=== PATIENT | male | born 1965 | race Caucasian/White ===

== ENCOUNTER 2020-12-28 12:30 | Emergency (ER) | payer OTHER ==
[2020-12-28 12:43] VITALS: BP 159/99; PULSE 97
--- NOTE | 2020-12-28 12:53 | EDM.PDOC ---
ED HPI GENERAL MEDICAL PROBLEM - General Chief Complaint: General Stated Complaint: ABCESS NEAR RECTUM Time Seen by Provider: 12/28/20 12:53 Source of Information: Reports: Patient History Limitations: Reports: No Limitations - History of Present Illness INITIAL COMMENTS - FREE TEXT/NARRATIVE: 55-year-old male presents to the ED with a painful swelling below his rectum on the left side that he first noticed yesterday morning and is much worse today. He can still walk it is mostly painful to walk versus sit. No problem with bowel movement x2 this morning. No blood. No systemic signs of illness with fever chills nausea or vomiting. He has had a previous perirectal abscess that required surgical drainage about 12 years ago. He cannot remember if it was in the same place or not. He is not known to have any diabetes. He feels he had COVID-19 illness last October. He has no signs or symptoms of COVID-19 illness at this time. He is a smoker and is trying to quit. Has occasional cough. He has had no previous abdominal surgery. Onset: Gradual Onset Date: 12/27/20 Onset Time: 06:00 Duration: Day(s):, Getting Worse Location: Reports: Other (More so on the perineum.) Quality: Reports: Ache, Throbbing Severity: Mild (Rates pain as 3 out of 10.) Improves with: Reports: Rest Worsens with: Reports: Other (This with walking with) Context: Reports: Other (Spontaneous development of perirectal abscess). Denies: Activity, Exercise ( pants in place.), Lifting, Sick Contact, Trauma Associated Symptoms: Reports: No Other Symptoms, Cough, cough w sputum (Folkers cough.). Denies: Confusion, Chest Pain, Diaphoresis, Fever/Chills, Headaches, Loss of Appetite, Malaise, Nausea/Vomiting, Rash, Seizure, Shortness of Breath, Syncope, Weakness Treatments [employer]: Reports: Other (see below) (None today.) rectum Pain Score (Numeric/FACES): 7 - Related Data Allergies Allergy/AdvReac Type Severity Reaction Status Date / Time No Known Allergies Allergy Verified 12/28/20 12:43 Home Meds: Home Meds oxyCODONE HCl/Acetaminophen [Percocet 5-325 mg Tablet] 1 - 2 each PO Q4H PRN #10 tablet 12/28/20 [Rx] Past Medical History HEENT History: Reports: Retinal Detachment Genitourinary History: Reports: Renal Calculus - Past Surgical History Male Surgical History: Reports: Renal Calculus, Other (See Below) (Previous perirectal abscess incision and drainage 12 years ago.) Musculoskeletal Surgical History: Reports: Shoulder Surgery (Repair of torn rotator cuff.) Social & Family History - Tobacco Use Tobacco Use Status *Q: Former Tobacco User Used Tobacco, but Quit: Yes Month/Year Tobacco Last Used: 07/2020 - Recreational Drug Use Recreational Drug Use: No ED ROS GENERAL - Review of Systems Review Of Systems: See Below Constitutional: Denies: Fever, Chills, Malaise, Weakness, Fatigue, Decreased Appetite, Weight Loss HEENT: Reports: No Symptoms Respiratory: Reports: Wheezing, Cough Cardiovascular: Reports: No Symptoms (Occasional wheezing. Occasional cough.) Endocrine: Reports: No Symptoms GI/Abdominal: Reports: No Symptoms, Other (Bowel movements thus far today with no pain other than on wiping.) : Reports: No Symptoms Musculoskeletal: Reports: Back Pain, Joint Pain (Is and shoulders at times.) Skin: Reports: Other (In full swollen area left inferior to the) Neurological: Reports: No Symptoms ( anus.) Psychiatric: Reports: No Symptoms Hematologic/Lymphatic: Reports: No Symptoms ED EXAM, GENERAL - Physical Exam Exam: See Below Exam Limited By: No Limitations General Appearance: Alert, WD/WN, No Apparent Distress, Other (Temperature is 36.4 degrees. Heart rate is 97 and sinus respiratory is 18 with O2 sats of 97% room air BP initially was 159/99. It did come down nicely to 136/90.) Eye Exam: Bilateral Eye: Normal Inspection (No scleral icterus or blepharal pallor.) Throat/Mouth: Normal Inspection, Normal Lips, Normal Teeth, Normal Oropharynx Head: Atraumatic, Normocephalic Neck: Normal Inspection, Supple, Non-Tender, Full Range of Motion. No: Carotid Bruit, Lymphadenopathy (L), Lymphadenopathy (R) Respiratory/Chest: No Respiratory Distress, No Accessory Muscle Use, Chest Non- Tender, Rhonchi (Rhonchi upper anterior chest that clear with coughing.), Wheezing. No: Lungs Clear, Normal Breath Sounds Cardiovascular: Normal Peripheral Pulses, Regular Rate, Rhythm, No Edema, No Gallop, No Murmur, No Rub Peripheral Pulses: 2+: Posterior Tibial (L), Posterior Tibial (R), Dorsalis Pedis (L), Dorsalis Pedis (R), 3+: Carotid (L), Carotid (R) GI/Abdominal: Normal Bowel Sounds, Soft, Non-Tender, No Organomegaly, No Abnormal Bruit, No Mass, Pelvis Stable, Hernia (No surgical scars. He does have an umbilical hernia which is easily reducible and does not give him any discomfort.), Other (Male) Exam: Circumcised Rectal (Males) Exam: Other (Patient has a perirectal abscess approximately 1 inch in length and three quarters of an inch in width at the 5 to 6 o'clock position if he is lying supine. Is inferior and to the left of the anus more so on the perineum. It is tender and warm to touch.) Back Exam: Normal Inspection, Full Range of Motion. No: CVA Tenderness (L), CVA Tenderness (R) Extremities: Normal Inspection, Normal Range of Motion, Non-Tender, No Pedal Edema Neurological: Alert, Oriented, CN II-XII Intact, Normal Cognition Psychiatric: Normal Affect, Normal Mood Skin Exam: Warm, Dry, Intact, Normal Color, Erythema (Mild erythema over perirectal abscess as described above.), Increased Warmth Course - Vital Signs Last Recorded V/S: Last Vital Signs Temp 36.4 C 12/28/20 12:41 Pulse 97 12/28/20 12:41 Resp 18 12/28/20 12:41 BP 159/99 H 12/28/20 12:41 Pulse Ox 97 12/28/20 12:41 - Orders/Labs/Meds Orders: Active Orders 24 hr Category Date Time Status Sodium Chloride 0.9% [Normal Saline] 1,000 ml Med 12/28/20 13:15 Active IV ASDIRECTED Medication Orders Sodium Chloride (Normal Saline) 1,000 mls @ 100 mls/hr IV ASDIRECTED ARSHI Last Admin: 12/28/20 13:30 Dose: 100 mls/hr Documented by: SIRI Labs: Laboratory Tests 12/28/20 12/28/20 Range/Units 13:23 13:23 WBC 10.28 H (4.23-9.07) K/mm3 RBC 4.80 (4.63-6.08) M/mm3 Hgb 15.5 D (13.7-17.5) gm/dl Hct 44.3 (40.1-51.0) % MCV 92.3 H (79.0-92.2) fl MCH 32.3 H (25.7-32.2) pg MCHC 35.0 (32.2-35.5) g/dl RDW Std Deviation 44.1 H (35.1-43.9) fL Plt Count 197 (163-337) K/mm3 MPV 9.9 (9.4-12.3) fl Neut % (Auto) 67.7 (34.0-67.9) % Lymph % (Auto) 19.7 L (21.8-53.1) % Dougherty % (Auto) 10.2 (5.3-12.2) % Eos % (Auto) 1.8 (0.8-7.0) Baso % (Auto) 0.4 (0.1-1.2) % Neut # (Auto) 6.95 H (1.78-5.38) K/mm3 Lymph # (Auto) 2.03 (1.32-3.57) K/mm3 Dougherty # (Auto) 1.05 H (0.30-0.82) K/mm3 Eos # (Auto) 0.19 (0.04-0.54) K/mm3 Baso # (Auto) 0.04 (0.01-0.08) K/mm3 Sodium 140 (136-145) mEq/L Potassium 3.3 L (3.5-5.1) mEq/L Chloride 104 (98-107) mEq/L Carbon Dioxide 26 (21-32) mEq/L Anion Gap 13.3 (5-15) BUN 14 (7-18) mg/dL Creatinine 0.9 (0.7-1.3) mg/dL Est Cr Clr Drug Dosing 92.74 mL/min Estimated GFR (MDRD) > 60 (>60) mL/min BUN/Creatinine Ratio 15.6 (14-18) Glucose 115 H (74-106) mg/dL Calcium 8.7 (8.5-10.1) mg/dL Total Bilirubin 0.6 (0.2-1.0) mg/dL AST 25 (15-37) U/L ALT 58 (16-63) U/L Alkaline Phosphatase 89 (46-116) U/L C-Reactive Protein 2.7 H* (<1.0) mg/dL Total Protein 7.0 (6.4-8.2) g/dl Albumin 3.7 (3.4-5.0) g/dl Globulin 3.3 gm/dL Albumin/Globulin Ratio 1.1 (1-2) Meds: Medications Generic Name Dose Route Start Last Admin Trade Name Freq PRN Reason Stop Dose Admin Sodium Chloride 1,000 mls @ 100 mls/hr 12/28/20 13:15 12/28/20 13:30 Normal Saline IV 100 mls/hr ASDIRECTED RASHI Administration Discontinued Medications Generic Name Dose Route Start Last Admin Trade Name Freq PRN Reason Stop Dose Admin Metronidazole 500 mg/ Premix 100 mls @ 100 mls/hr 12/28/20 13:07 12/28/20 13:51 IV 12/28/20 14:06 100 mls/hr ONETIME ONE Administration Ceftriaxone Sodium 2 gm/ 100 mls @ 200 mls/hr 12/28/20 13:08 12/28/20 13:30 Sodium Chloride IV 12/28/20 13:37 200 mls/hr ONETIME ONE Administration Lidocaine/Epinephrine 20 ml 12/28/20 15:00 12/28/20 15:11 Lidocaine 1% With Epinephrine 1:100,000 20 Ml Mdv INJECT 12/28/20 15:01 20 ml ONETIME ONE Administration Lidocaine/Epinephrine Confirm 12/28/20 14:50 12/28/20 15:11 Lidocaine 1% With Epinephrine 1:100,000 10 Ml Mdv Administered 12/28/20 14:51 Not Given Dose 20 ml .ROUTE .[facility] ONE - Radiology Interpretation Free Text/Narrative:: 55-year-old male presents to the ED with a painful swollen area inferior and to the left of his anus. Patient had a similar event about 12 years ago which required incision and drainage in the operating room. He states he waited too long at that time. He first noted tenderness in this area yesterday morning and today it is much worse. It is painful to walk but not so bad to sit. He has no systemic signs of illness with fever chills nausea or vomiting. He has no signs or symptoms of COVID-19 illness. He last ate 2 hours prior to arrival in the ED. Had a fairly large dinner. Lamination reveals a 2.5 cm x 1.5 cm oval- shaped abscess at the 5 6 o'clock position nearly on the perineum versus the rectum when he is supine. The area is moderately tender to palpation. He has minimal perianal skin tags from previous hemorrhoids. No other abnormalities detected. Plan routine labs to be done to make sure there is no systemic signs of illness. He will receive Rocephin 2 g IV and Flagyl 500 mg IV. I will discuss his case with the surgeon on-call. - Re-Assessments/Exams Free Text/Narrative Re-Assessment/Exam: 12/28/20 13:20: I did speak with and made her aware of the patient with a small perirectal abscess of perhaps 2 days duration. She is willing to see him in consultation with a view to incision and draining it under local anesthetic. Therefore COVID-19 screen will not be done. 12/28/20 14:18 White count is minimally elevated at 10.28. Differential is 67.7% neutrophils on the auto differential. Hemoglobin is 15.5 with hematocrit of 44.3. MCV is slightly elevated at 92.3. Platelet count normal 197,000. Serum sodium is 140 with a potassium of 3.3. Chloride is 104 the bicarb of 26. Anion gap is 13.3. BUN is 14 with a creatinine of 0.9. GFR is greater than 60. Glucose is 115 with a calcium of 8.7. Total bilirubin is 0.6 and the liver function is otherwise normal. C-reactive protein is mildly elevated at 2.7. Total protein is 7.0 with an albumin fraction of 3.7. 12/28/20 15:00: Dr Gordon has formed the incision and drainage on his perirectal/perineal abscess. She is advised him how to keep the area clean with sits baths and to dress the wound for the next 2 to 3 days until it closes in. He will use Motrin 600 mg and 1 Percocet 5/325 mg tablet every 6 hours as needed for pain relief. Provided with 10 tablets of Percocet 5/325 mg strength. He will follow up with her in the clinic if any further problems occur or return to the ED over the weekend. Departure - Departure Time of Disposition: 15:28 Disposition: Home, Self-Care 01 Condition: Fair Clinical Impression: [place]-rectal abscess - Discharge Information *PRESCRIPTION DRUG MONITORING PROGRAM REVIEWED*: Not Applicable *COPY OF PRESCRIPTION DRUG MONITORING REPORT IN PATIENT DANE: Not Applicable Prescriptions: oxyCODONE HCl/Acetaminophen [Percocet 5-325 mg Tablet] 1 - 2 each PO Q4H PRN #10 tablet PRN Reason: pain relief. Referrals: PCP,None [Primary Care Provider] - Forms: ED Department Discharge Additional Instructions: Evaluation in the emergency room today in regards to a perirectal abscess that developed on the left side inferior to the anus. It measured approximately one 2.5 cm x 1.5 cm in size. The area was incised and drained by surgeon Dr.Addom- Carrillo . He has advised you how to keep the area clean and about sits baths etc. I would suggest Motrin 600 mg with 1 Percocet 5/325 mg tablet every 6 hours as needed for pain relief for the next day or 2. After that things usually settle down pretty quickly. Of course return to the ED if you develop any fever chills, nausea vomiting. No further antibiotics are felt to be required since it was not a large quantity of pus in the abscess at this time. Sepsis Event Note (ED) - Evaluation Sepsis Screening Result: No Definite Risk - Focused Exam Vital Signs: Vital Signs Temp Pulse Resp BP Pulse Ox 12/28/20 12:41 36.4 C 97 18 159/99 H 97 - My Orders Last 24 Hours: My Active Orders 12/28/20 13:15 Sodium Chloride 0.9% [Normal Saline] 1,000 ml IV ASDIRECTED - Assessment/Plan Last 24 Hours: My Active Orders 12/28/20 13:15 Sodium Chloride 0.9% [Normal Saline] 1,000 ml IV ASDIRECTED
[2020-12-28] MEDS ORDERED: metroNIDAZOLE/Normal Saline 500 MG in Premix Bag 1 BAG IV ONE (13:07)
[2020-12-28] MEDS ORDERED: cefTRIAXone 2 GM in Sodium Chloride 0.9% 100 ML IV ONE (13:08)
[2020-12-28] MEDS ORDERED: Sodium Chloride 0.9% 1,000 ML IV SCH (13:15)
--- NOTE | 2020-12-28 14:44 | PCM.CONS ---
H&P History of Present Illness - General Date of Service: 12/28/20 Source of Information: Patient, Provider History Limitations: Reports: No Limitations - History of Present Illness Initial Comments - Free Text/Narative: The patient is a 55-year-old male presented with a 1 day history of pain in the perineum. He has a history of perineal abscess in the same location and came in for treatment. He denies any hematochezia or purulent stool. He reports normal stooling and normal urination. Denies any fevers or chills. He has never had a colonoscopy rectum Pain Score (Numeric/FACES): 7 - Related Data Allergies/Adverse Reactions: Allergies Allergy/AdvReac Type Severity Reaction Status Date / Time No Known Allergies Allergy Verified 12/28/20 12:43 Home Medications: Home Meds oxyCODONE HCl/Acetaminophen [Percocet 5-325 mg Tablet] 1 - 2 each PO Q4H PRN #10 tablet 12/28/20 [Rx] Past Medical History HEENT History: Reports: Retinal Detachment Genitourinary History: Reports: Renal Calculus - Past Surgical History Male Surgical History: Reports: Renal Calculus, Other (See Below) (Previous perirectal abscess incision and drainage 12 years ago.) Musculoskeletal Surgical History: Reports: Shoulder Surgery (Repair of torn rotator cuff.) Social & Family History - Family History Oncologic: Reports: Skin - Tobacco Use Tobacco Use Status *Q: Former Tobacco User Used Tobacco, but Quit: Yes Month/Year Tobacco Last Used: 07/2020 - Recreational Drug Use Recreational Drug Use: No H&P Review of Systems - Review of Systems: Review Of Systems: See Below General: Reports: No Symptoms HEENT: Reports: No Symptoms Pulmonary: Reports: No Symptoms Cardiovascular: Reports: No Symptoms Gastrointestinal: Reports: No Symptoms Genitourinary: Reports: No Symptoms Musculoskeletal: Reports: No Symptoms Skin: Reports: Erythema Neurological: Reports: No Symptoms Hematologic/Lymphatic: Reports: No Symptoms Exam - Exam Exam: See Below - Vital Signs Vital Signs: Last Vital Signs Temp 36.4 C 12/28/20 12:41 Pulse 97 12/28/20 12:41 Resp 18 12/28/20 12:41 BP 159/99 H 12/28/20 12:41 Pulse Ox 97 12/28/20 12:41 Weight: 97.522 kg - Exam Quality Assessment: No: Supplemental Oxygen General: Alert, Oriented HEENT: Conjunctiva Clear, EOMI Neck: Supple Lungs: Normal Respiratory Effort GI/Abdominal Exam: No Distention Rectal (Males) Exam: Other (Erythematous nodule measuring 3 x 1.5 cm on the patient's left sided perineum) Extremities: Normal Inspection, No Pedal Edema Peripheral Pulses: 2+: Dorsalis Pedis (L), Dorsalis Pedis (R) Skin: Warm, Dry, Intact Neurological: Cranial Nerves Intact Neuro Extensive - Mental Status: Normal Mood/Affect - Patient Data Lab Results Last 24 hrs: Laboratory Results - last 24 hr 12/28/20 12/28/20 Range/Units 13:23 13:23 WBC 10.28 H (4.23-9.07) K/mm3 RBC 4.80 (4.63-6.08) M/mm3 Hgb 15.5 D (13.7-17.5) gm/dl Hct 44.3 (40.1-51.0) % MCV 92.3 H (79.0-92.2) fl MCH 32.3 H (25.7-32.2) pg MCHC 35.0 (32.2-35.5) g/dl RDW Std Deviation 44.1 H (35.1-43.9) fL Plt Count 197 (163-337) K/mm3 MPV 9.9 (9.4-12.3) fl Neut % (Auto) 67.7 (34.0-67.9) % Lymph % (Auto) 19.7 L (21.8-53.1) % Graves % (Auto) 10.2 (5.3-12.2) % Eos % (Auto) 1.8 (0.8-7.0) Baso % (Auto) 0.4 (0.1-1.2) % Neut # (Auto) 6.95 H (1.78-5.38) K/mm3 Lymph # (Auto) 2.03 (1.32-3.57) K/mm3 Graves # (Auto) 1.05 H (0.30-0.82) K/mm3 Eos # (Auto) 0.19 (0.04-0.54) K/mm3 Baso # (Auto) 0.04 (0.01-0.08) K/mm3 Sodium 140 (136-145) mEq/L Potassium 3.3 L (3.5-5.1) mEq/L Chloride 104 (98-107) mEq/L Carbon Dioxide 26 (21-32) mEq/L Anion Gap 13.3 (5-15) BUN 14 (7-18) mg/dL Creatinine 0.9 (0.7-1.3) mg/dL Est Cr Clr Drug Dosing 92.74 mL/min Estimated GFR (MDRD) > 60 (>60) mL/min BUN/Creatinine Ratio 15.6 (14-18) Glucose 115 H (74-106) mg/dL Calcium 8.7 (8.5-10.1) mg/dL Total Bilirubin 0.6 (0.2-1.0) mg/dL AST 25 (15-37) U/L ALT 58 (16-63) U/L Alkaline Phosphatase 89 (46-116) U/L C-Reactive Protein 2.7 H* (<1.0) mg/dL Total Protein 7.0 (6.4-8.2) g/dl Albumin 3.7 (3.4-5.0) g/dl Globulin 3.3 gm/dL Albumin/Globulin Ratio 1.1 (1-2) Result Diagrams: 12/28/20 13:23 12/28/20 13:23 Sepsis Event Note - Evaluation Sepsis Screening Result: No Definite Risk - Focused Exam Vital Signs: Vital Signs Temp Pulse Resp BP Pulse Ox 12/28/20 12:41 36.4 C 97 18 159/99 H 97 Consult PN Assessment/Plan Procedures: Procedures COMPLETE CBC W/AUTO DIFF WBC (08/30/15) COMPREHEN METABOLIC PANEL (08/30/15) EMERGENCY DEPT VISIT (08/30/15) ROUTINE VENIPUNCTURE (08/30/15) URINALYSIS AUTO W/SCOPE (08/30/15) (1) [place]-rectal abscess SNOMED Code(s): 15950210 Code(s): K61.1 - RECTAL ABSCESS Problem List Initiated/Reviewed/Updated: Yes Plan: The patient is a 55-year-old male with an abscess in the perineum. This appears to be recurrent. -Plan for incision and drainage of this area. Patient was instructed that if erythema spreads in this area that he should return promptly for evaluation -Patient instructed to proceed with colorectal cancer screening colonoscopy once this area heals as this has never been evaluated and may be connected to the causation -Patient declined having culture drawn at this time -After I&D is done, patient may return for dressing changes as needed but need to do dressing change once daily -No antibiotics needed Ayde Bar MD General Surgery
[2020-12-28] MEDS ORDERED: Lidocaine 1% with EPINEPHrine 1:100,000 10 ML MDV ONE (14:50)
[2020-12-28] MEDS ORDERED: Lidocaine 1% with EPINEPHrine 1:100,000 20 ML MDV INJECT ONE (15:00)
--- NOTE | 2020-12-28 18:45 | PCM.PRNOTE ---
- Free Text/Narrative Note: Procedure report Date of procedure: December 28, 2020 Preoperative diagnosis: Perineal abscess Postoperative diagnosis: same Procedure: Incision and drainage of perineal abscess Surgeon: Dr. Ayde Bar Anesthesia: 1% lidocaine with epinephrine Estimated blood loss: 3 mL Indication for the procedure: The patient is a 55-year-old male with recurrent perineal abscess. He was consented for an incision and drainage of this area. Discussed risk of bleeding and infection. We discussed the need for po stprocedure wound care. The patient's written consent was obtained Description of the procedure: The patient was positioned in left lateral decubitus position. His perineum was then prepped with Betadine. A timeout was performed. We localized the area with 1% lidocaine with epinephrine. We then made a 1.5 cm incision into the abscess cavity. Purulent, malodorous then discharge was removed from the cavity. This appeared to be the contents of the abscess mixed with the local anesthetic. After the cavity was thoroughly interrogated, it was flushed with 1% lidocaine with epinephrine. It was then packed with 1/2 inch iodoform. The patient tolerated the procedure well. There were no apparent complications. Ayde Bar MD General Surgery
== END 2020-12-28 15:51 | disposition home or self-care (01) ==
LOC: JD.ED 12:30
DX: K61.1 Rectal abscess (principal); Z87.891 Personal history of nicotine dependence
CPT/HCPCS: 36415; 80053; 85025; 86140; 96365; 96367; 99283; J0696; J3490; J7030; 99284